=== PATIENT | female | born 1955 | race African-American/Black ===

== ENCOUNTER 2023-11-02 21:01 | Emergency (ER) | payer MEDICARE, SELFPAY ==
[2023-11-02 21:02] VITALS: BP 174/90; PULSE 74; RESP 18; TEMP 36.7; O2SAT 98; BMI 27.6
--- NOTE | 2023-11-02 21:32 | EKG12_ITS ---
Test Reason : CP Blood Pressure : / mmHG Vent. Rate : 065 BPM Atrial Rate : 065 BPM P-R Int : 200 ms QRS Dur : 084 ms QT Int : 398 ms P-R-T Axes : 058 036 056 degrees QTc Int : 413 ms Normal sinus rhythm Normal ECG Confirmed by Nelson Hernandez ([id number]), news video editor NICOLASA BERNABE ([id number]) on 11/07/2023 2:04:12 PM Referred By: LEANDRO Confirmed By:Nelson Hernandez
--- NOTE | 2023-11-02 21:33 | ED.VIS.CHEST ---
HPI History of Present Illness Chief Complaint: Chest Pain Narrative Narrative: 68-year-old female past medical history of hypertension and hypercholesterolemia presents with a constellation of symptoms ranging from headache, dizziness, nausea, and chest pain. Of note, she saw her doctor, Dr. Nair today, and everything checked out well. Her blood pressure was only slightly elevated in the 130s systolic. She relates history that around 8:00 this evening, an hour and a half ago, she had a sharp pain in her head which went away, and she felt slightly dizzy. She went to lay down, put on her pajamas, and became nauseated. They checked her blood pressure and it was as high as 190/90 systolic. They checked it several times every 1/2 hour, and it remained elevated. She also describes midsternal chest pain without radiation. No vomiting, no shortness of breath, no recent fevers or chills, no cough. She denies any diaphoresis. She thought that since her blood pressure was elevated and remained elevated that she should come to the hospital for evaluation. No swelling of her legs, no DVT or PE risk factors. [facility] Medical History (Updated 11/03/23 @ 00:05 by Tarik Elmore MD) Chest pain Allergy/AdvReac Type Severity Reaction Status Date / Time No Known Allergies Allergy Verified 11/02/23 21:04 Social History Smoking Status: Never smoker ROS ROS ED ROS Narrative Constitutional: No fever, no chills. HEENT: No sore throat. No neck pain. No loss of vision. No rhinorrhea. Cardiovascular: Positive chest pain. No palpitations. No pedal edema. Respiratory: No cough, no shortness of breath. Abdominal: No abdominal pain. Positive nausea. No vomiting. Genitourinary: No dysuria. No hematuria. Musculoskeletal: No myalgias. No arthralgias. Neurologic: Sharp pain in head/headache-resolved. Positive dizziness. No lightheadedness. Skin: No rash. No change in color. Psychiatric: No depression. No anxiety. EXAM Physical Exam Narrative Exam Narrative: Afebrile. Vital signs noted. HEENT: Normocephalic. Atraumatic. PERRL, EOMI. Neck soft and supple. No point tenderness or step off. Cardiovascular: Regular rate and rhythm. No murmurs, rubs, or gallops appreciated. Respiratory: No tachypnea. Lungs clear to auscultation bilaterally. Gastrointestinal: Abdomen soft, nontender, with normoactive bowel sounds. No rebound or guarding. Neurological: Awake. Alert. Nonfocal, nonlateralizing. Skin: No rash. Normal color. No pallor. Musculoskeletal: No pedal edema. Full range of motion extremities. Const Vital Signs: 11/02/23 21:02 11/02/23 21:42 11/02/23 22:23 Temperature 98.0 F Temperature Source Temporal Pulse Rate 74 68 Respiratory Rate 18 12 Blood Pressure 174/90 H 159/79 H Blood Pressure Mean 118 105 Pulse Ox 98 95 Oxygen Delivery Method Room Air Room Air Room Air MDM MDM MDM Narrative Medical decision making narrative: In the differential diagnosis is acute coronary syndrome versus hypertensive urgency/emergency versus pulmonary embolism. I have low suspicion for PE because he does not have any risk factors and her Wells score is low, she is not tachycardic nor hypoxic. I do not feel that D-dimer or pursuit of pulmonary embolism workup is indicated. It was noted that her blood pressure is 174/90. She has been on this low-dose medication for the last 10 years. I will continue to observe her blood pressure and should it elevate more, she will be given a medication to help lower her blood pressure. Chest pain workup was pursued. EKG was obtained and interpreted by myself independently as normal sinus rhythm at 65 bpm without ectopy or acute ST changes. No STEMI. I reviewed her laboratory work, and she has normal white count of 8.2, hemoglobin normal at 14.2, hematocrit 44.3, platelet count normal at 259. Review of her electrolyte panel shows chloride elevated at 111 which I think is nonspecific, anion gap low at 3. Glucose is appropriately elevated at 116. Her initial high-sensitivity troponin is 5. I interpreted her chest x-ray in 1 view independently and so no evidence of an acute process, no consolidation or pneumothorax. I reviewed the radiology report which confirms my independent interpretation. At this point in time, her repeat troponin is pending. Her blood pressure has come down to 159/79. I feel that as long as she has a normal troponin and no large delta that she can be discharged to follow-up with her primary care provider for labile blood pressure. Patient will be signed out to Dr. Luiz Castillo who will check the delta troponin/second troponin and make final disposition. Patient is in stable condition. History & Record Review Discussion w/independent historian: Patient and Family () Lab Data Attestation: I reviewed the patient's lab results. Labs: Laboratory Results - last 24 hr 11/02/23 21:40 WBC 8.2 RBC 4.60 Hgb 14.2 Hct 44.3 MCV 96.3 MCH 30.9 MCHC 32.1 RDW Std Deviation 45.0 H RDW Coeff of Jason 12.7 Plt Count 259 MPV 10.6 Immature Gran % (Auto) 0.200 Neut % (Auto) 68.5 Lymph % (Auto) 22.4 [place] % (Auto) 7.3 Eos % (Auto) 1.1 Baso % (Auto) 0.5 Absolute Neuts (auto) 5.6 Absolute Lymphs (auto) 1.84 Nucleated RBC % 0 Sodium 142 Potassium 3.7 Chloride 111 H Carbon Dioxide 28.0 Anion Gap 3 L BUN 9 Creatinine 0.66 Estim Creat Clear Calc 60.36 Est GFR (MDRD) Af Amer 115 Est GFR (MDRD) Non-Af 95 BUN/Creatinine Ratio 13.6 Glucose 116 H Calcium 9.6 Troponin I High Sens 5 Radiography Diagnostic Testing: Clinical Impression(s) from Imaging Studies Chest X-Ray 11/02/23 21:40 IMPRESSION: Mild bibasilar atelectasis. Electronically Signed: Luther Sherman MD at 22:15 EST , Discharge Plan Triage Chief Complaint: Chest Pain ED Provider: Tarik Elmore Dx/Rx/DC Orders Clinical Impression: Labile blood pressure, Chest pain Instructions: ED Chest Pain, Uncertain Cause, ED High Blood Pressure Hypertension Primary Care Provider: Bonnie Bee Referrals: Bonnie Bee MD [Primary Care Provider] - 1-2 Days if not improving Disposition Disposition: Home, Self Care
--- NOTE | 2023-11-02 21:40 | RAD_ITS ---
INDICATION: chest pain EXAMINATION: Frontal view of the chest COMPARISON: None. FINDINGS: Frontal view of the chest was obtained. The cardiac silhouette is not enlarged. Mild bibasilar atelectasis. No pneumothorax. No acute fracture identified. RAD/Chest 1 View (Portable) IMPRESSION: Mild bibasilar atelectasis. Electronically Signed: Luther Sherman MD at 22:15 EST ,
[2023-11-02] MEDS: Aspirin 81 MG TAB.CHEW 324 MG PO (21:41)
[2023-11-02 21:48] LABS: Absolute Lymphocyte Count 1.84 X10^3/uL (0.83-4.51); Absolute Neutrophil Count 5.6 X10^3/uL (2.0-7.7); Basophil# 0.04 X10^3/uL; Basophil% 0.5 % (0-1); Eosinophil# 0.09 X10^3/uL; Eosinophils% 1.1 % (0-5); Hematocrit 44.3 % (37-47); Hemoglobin 14.2 g/dL (12.0-15.0); Lymphocyte # 1.84 X10^3/ul (0.83-4.51); Lymphocyte % 22.4 % (19-41); Mean Corp Hgb Conc 32.1 g/dL (32-36); Mean Corpuscular Hgb 30.9 pg (27.0-32.0); Mean Corpuscular Volume 96.3 fL (81-99); Mean Platelet Vol. 10.6 fl (6.2-12.0); Monocyte% 7.3 % (0-10); NRBC Flagged by Analyzer 0 % (0-5); Neutrophil # 5.61 X10^3/uL (2.7-7.7); Neutrophil % 68.5 % (47-70); Platelet Count 259 K/mm3 (150-450); RBC Distribution Width CV 12.7 % (11.6-14.6); White Blood Count 8.2 K/mm3 (4.4-11.0)
[2023-11-02 22:10] LABS: Anion Gap 3 (5-15); BUN 9 mg/dL (7-18); BUN/Creat Ratio 13.6 RATIO (10-20); Calcium,Total 9.6 mg/dL (8.5-10.1); Chloride 111 mmol/L (98-107); Creatinine, Serum 0.66 mg/dL (0.55-1.02); EST Glomerular Filtration Rate 95 mL/min (>60); Est Glom Filt Rate - Afr Amer 115 mL/min (>60); Estimated Creatinine Clearance 60.36 ml/min; Glucose 116 mg/dL (74-106); Potassium 3.7 mmol/L (3.5-5.1); Sodium Level 142 mmol/L (136-145); Troponin-I HS (w/2H Reflex) 5 pg/mL (3.0-54.0)
[2023-11-02 22:23] VITALS: BP 159/79; PULSE 68; RESP 12; O2SAT 95
[2023-11-02 23:45] LABS: Reflex Troponin-HS? (from REC) Y
[2023-11-02] MEDS: Acetaminophen 325 MG Tablet 650 MG PO (23:51)
[2023-11-03 00:15] VITALS: BP 147/84; PULSE 74; RESP 14; O2SAT 95
[2023-11-03 00:54] LABS: Troponin-I HS 6 pg/mL (3.0-54.0)
[2023-11-03 01:15] VITALS: BP 151/84; PULSE 76; RESP 16; TEMP 36.3; O2SAT 95; O2SAT 96
== END 2023-11-03 01:19 | disposition home or self-care (01) ==
PROVIDERS: Emergency Provider Emergency Medicine; PCP Internal Medicine; Visit Provider Emergency Medicine
DX: R07.9 Chest pain, unspecified (principal); E78.00 Pure hypercholesterolemia, unspecified; R11.0 Nausea; R51.9 Headache, unspecified; I10 Essential (primary) hypertension; J98.11 Atelectasis; R03.0 Elevated blood-pressure reading, without diagnosis of hypertension
CPT/HCPCS: 71045; 80048; 84484; 85025; 93005; 99285; A4216